=== PATIENT | male | born 1960 | race Caucasian/White ===

== ENCOUNTER 2021-10-29 07:39 | Outpatient (CLI) | payer BC | END 2021-10-29 07:40 | disposition home or self-care (01) | LOC: SCSMRI 07:39 | PROVIDERS: ATTEND Specialist | DX: M51.17 Intervertebral disc disorders with radiculopathy, lumbosacral region (principal); M47.816 Spondylosis without myelopathy or radiculopathy, lumbar region; R60.0 Localized edema | CPT/HCPCS: 72148 ==

== ENCOUNTER 2023-10-16 07:28 | Outpatient (CLI) | payer BC, OTHER | END 2023-10-16 07:29 | disposition home or self-care (01) | LOC: SCSMRI 07:28 | PROVIDERS: ATTEND Nurse Practitioner Family | DX: M51.17 Intervertebral disc disorders with radiculopathy, lumbosacral region (principal); M48.061 Spinal stenosis, lumbar region without neurogenic claudication | CPT/HCPCS: 72148 ==

== ENCOUNTER 2023-10-29 12:09 | Outpatient (CLI) | payer BC, OTHER | END 2023-10-29 12:10 | disposition home or self-care (01) | LOC: SCSRAD 12:09 | PROVIDERS: ATTEND Nurse Practitioner Family | DX: M51.17 Intervertebral disc disorders with radiculopathy, lumbosacral region (principal); M47.816 Spondylosis without myelopathy or radiculopathy, lumbar region; M43.16 Spondylolisthesis, lumbar region; M41.9 Scoliosis, unspecified | CPT/HCPCS: 72110 ==